=== PATIENT | female | born 1970 | race Caucasian/White ===

== ENCOUNTER 2019-10-19 07:37 | Day surgery (SDC) | payer BC ==
[~2019-10-19 07:37] MED LIST: Lactated Ringers 1,000 ML IV SCH; Sodium Chloride 0.9% 10 ML Syringe FLUSH PRN
[2019-10-19] MEDS ORDERED: Propofol 200 MG/20 ML SDV IV ONE (07:38)
--- NOTE | 2019-10-19 09:41 | PCM.OPNOTE ---
- General Post-Op/Procedure Note Date of Surgery/Procedure: 10/19/19 Operative Procedure(s): c scope Findings: normal terminal ileum normal colon Pre Op Diagnosis: Heme + stools Post-Op Diagnosis: nl exam Anesthesia Technique: MAC Primary Surgeon: Mic Cox Anesthesia Provider: Laura Mcdaniels Pathology: none Complications: None Condition: Good Free Text/Narrative:: see dictation
--- NOTE | 2019-10-19 12:18 | OR ---
DATE OF OPERATION: 10/19/2019 SURGEON: Mic Cox MD PROCEDURE PERFORMED: Colonoscopy. PREOPERATIVE DIAGNOSIS: Positive FIT exam. POSTOPERATIVE DIAGNOSIS: Normal terminal ileum, normal colon. INDICATIONS FOR PROCEDURE: This is a 49-year-old white female who was recently found to have an acute positive occult blood on recent exam. She was offered and accepted colonoscopy. DESCRIPTION OF PROCEDURE: After an excellent IV sedation was administered, digital rectal exam was performed. No marked abnormality was noted. Flexible colonoscope was inserted and advanced to the cecum. Prep was excellent. The terminal ileum was intubated. The following findings were noted: Approximately 10 cm, the terminal ileum was unremarkable. Ascending colon, unremarkable. Transverse colon, unremarkable. Descending colon, unremarkable. Sigmoid and rectum, unremarkable. Colon was deflated. Scope was removed. RECOMMENDATIONS: Repeat colonoscopy in 10 years. /[id number] /[id number]
== END 2019-10-19 10:38 | disposition home or self-care (01) ==
LOC: FB.SDS 07:37 → MERGE 07:37 → FB.SDS 10:38
PROVIDERS: ATTEND Surgery
DX: R19.5 Other fecal abnormalities (principal); J45.909 Unspecified asthma, uncomplicated; F41.9 Anxiety disorder, unspecified; F32.9 Major depressive disorder, single episode, unspecified; E66.9 Obesity, unspecified; L72.0 Epidermal cyst; L72.11 Pilar cyst; Z88.5 Allergy status to narcotic agent; Z88.8 Allergy status to other drugs, medicaments and biological substances; Z68.32 Body mass index [BMI] 32.0-32.9, adult; Z79.899 Other long term (current) drug therapy
CPT/HCPCS: 45378; J7120; J2704